=== PATIENT | female | born 1945 | race Caucasian/White ===

== ENCOUNTER 2020-06-17 09:25 | Outpatient (CLI) | payer MEDICARE | END 2020-06-17 09:26 | disposition home or self-care (01) | LOC: CSHMAMMO 09:25 | PROVIDERS: ATTEND Family Medicine | DX: R92.8 Other abnormal and inconclusive findings on diagnostic imaging of breast (principal); Z80.3 Family history of malignant neoplasm of breast | CPT/HCPCS: 77065; G0279 ==

== ENCOUNTER 2020-12-18 09:09 | Outpatient (CLI) | payer MEDICARE | END 2020-12-18 09:10 | disposition home or self-care (01) | LOC: CSHMAMMO 09:09 | PROVIDERS: ATTEND Family Medicine | DX: Z12.31 Encounter for screening mammogram for malignant neoplasm of breast (principal); Z13.820 Encounter for screening for osteoporosis; Z78.0 Asymptomatic menopausal state; M85.89 Other specified disorders of bone density and structure, multiple sites; Z80.3 Family history of malignant neoplasm of breast | CPT/HCPCS: 77063; 77067; 77080 ==

== ENCOUNTER 2021-01-19 13:08 | Outpatient (CLI) | payer MEDICARE | END 2021-01-19 13:09 | disposition home or self-care (01) | LOC: CSHRAD 13:08 | PROVIDERS: ATTEND Urology | DX: N39.0 Urinary tract infection, site not specified (principal); N81.11 Cystocele, midline; N95.2 Postmenopausal atrophic vaginitis; N32.89 Other specified disorders of bladder; R39.198 Other difficulties with micturition | CPT/HCPCS: 51600; 74455; 76770 ==

== ENCOUNTER 2021-12-21 09:29 | Outpatient (CLI) | payer MEDICARE | END 2021-12-21 09:30 | disposition home or self-care (01) | LOC: CSHMAMMO 09:29 | PROVIDERS: ATTEND Family Medicine | DX: Z12.31 Encounter for screening mammogram for malignant neoplasm of breast (principal); Z80.3 Family history of malignant neoplasm of breast | CPT/HCPCS: 77063; 77067 ==

== ENCOUNTER 2022-12-23 10:30 | Outpatient (CLI) | payer MEDICARE | END 2022-12-23 10:31 | disposition home or self-care (01) | LOC: CSHMAMMO 10:30 | PROVIDERS: ATTEND Family Medicine | DX: Z12.31 Encounter for screening mammogram for malignant neoplasm of breast (principal); Z80.3 Family history of malignant neoplasm of breast | CPT/HCPCS: 77063; 77067 ==

== ENCOUNTER 2023-12-28 10:51 | Outpatient (CLI) | payer MEDICARE | END 2023-12-28 10:52 | disposition home or self-care (01) | LOC: CSHMAMMO 10:51 | PROVIDERS: ATTEND Family Medicine | DX: Z12.31 Encounter for screening mammogram for malignant neoplasm of breast (principal); Z80.3 Family history of malignant neoplasm of breast | CPT/HCPCS: 77063; 77067 ==

== ENCOUNTER 2024-12-28 12:00 | Outpatient (CLI) | payer OTHER | END 2024-12-28 12:01 | disposition home or self-care (01) | LOC: CSHMAMMO 12:00 | PROVIDERS: ATTEND Family Medicine | DX: Z12.31 Encounter for screening mammogram for malignant neoplasm of breast (principal); Z80.3 Family history of malignant neoplasm of breast | CPT/HCPCS: 77063; 77067 ==